=== PATIENT | female | born 1975 | race Caucasian/White ===

== ENCOUNTER 2017-10-12 10:21 | Emergency (ER) | payer BC ==
[2017-10-12 10:43] VITALS: BP 159/94
--- NOTE | 2017-10-12 11:11 | UC ---
Back Pain HPI - HPI Summary HPI Summary: 42 yo WF c/o left upper back pain over the blade of the scapula x 4 days. Works out alot with weights and tire turning at the gym but does not recall injury or trauma - History of Current Complaint Chief Complaint: UCUpperExtremity Stated Complaint: SHOULDER INJURY Time Seen by Provider: 10/12/17 10:39 Hx Obtained From: Patient Hx From Patient Unobtainable Due To: Other ?: No Onset/Duration: Lasting Days Severity Initially: Moderate Severity Currently: Moderate Pain Intensity: 7 - Allergies/Home Medications Allergies/Adverse Reactions: Allergies Allergy/AdvReac Type Severity Reaction Status Date / Time sumatriptan [From Imitrex] Allergy Palpitation Verified 10/12/17 10:31 s PMH/Surg Hx/FS Hx/Imm Hx Previously Healthy: Yes - Surgical History Surgical History: Yes Surgery Procedure, Year, and Place: Uterine ablation due to a kidney infection ; tubal ligation 20 years ago; rhinoplasty, [facility] 2015 - Family History Known Family History: Positive: Other - migraines - Social History Alcohol Use: Occasionally Alcohol Amount: 3-4 PER WEEK Substance Use Type: None Smoking Status (MU): Former Smoker Amount Used/How Often: PACK A DAY Have You Smoked in the Last Year: No When Did the Patient Quit Smoking/Using Tobacco: 2001 Review of Systems Constitutional: Negative Skin: Negative Eyes: Negative ENT: Negative Respiratory: Negative Cardiovascular: Negative Gastrointestinal: Negative Genitourinary: Negative Motor: Negative Neurovascular: Negative Musculoskeletal: Decreased ROM - right upper back Neurological: Negative Psychological: Negative All Other Systems Reviewed And Are Negative: Yes Physical Exam Triage Information Reviewed: Yes Vital Signs: Initial Vital Signs Temp 37.2 C 10/12/17 10:33 Pulse 73 10/12/17 10:33 Resp 20 10/12/17 10:33 BP 159/94 10/12/17 10:33 Pulse Ox 98 10/12/17 10:33 Eye Exam: Normal ENT Exam: Normal Dental Exam: Normal Neck exam: Normal Neck: Positive: 1 Respiratory Exam: Normal Cardiovascular Exam: Normal Abdominal Exam: Normal Musculoskeletal: Positive: ROM Intact - on left inferior scapula, Strength Limited @, ROM Limited @ - left shouler, Edema @, Other: - moderate TTP over and around left inferior scapular region extending to upper trapezius, ROM intact in shoulder joint, no bony tenderness Neurological Exam: Normal Psychological Exam: Normal Skin Exam: Normal Back Pain Course/Dx - Course Course Of Treatment: Naproxen 500 BID, yi message for upper back strain, likely related to exercise. F/u with ortho if pain persists >2 week - Differential Dx/Diagnosis Provider Diagnoses: left upper back strain Discharge - Sign-Out/Discharge Documenting (check all that apply): Discharge - Discharge Plan Condition: Stable Disposition: HOME Prescriptions: Naproxen 500 mg PO BID 10 Days #20 tablet. Patient Education Materials: Thoracic Back Strain (ED) Forms: *Work Release Referrals: Raheem Vergara DO [Primary Care Provider] - Additional Instructions: please follow up with orthopedics if pain persists >2 weeks - Billing Disposition and Condition Condition: STABLE Disposition: HOME
== END 2017-10-12 11:13 | disposition home or self-care (01) ==
LOC: UCEAST 10:21
DX: S29.012A Strain of muscle and tendon of back wall of thorax, initial encounter (principal); X58.XXXA Exposure to other specified factors, initial encounter; Y93.9 Activity, unspecified; Y92.9 Unspecified place or not applicable; Z88.8 Allergy status to other drugs, medicaments and biological substances; Z87.891 Personal history of nicotine dependence
CPT/HCPCS: 99212; G0463